=== PATIENT | female | born 1995 | race African-American/Black ===

== ENCOUNTER 2019-01-25 09:15 | Emergency (ER) | payer OTHER ==
[~2019-01-25] VITALS: Ht 175.3 cm; Wt 70.0 kg
[~2019-01-25 09:15] MED LIST: TYLENOL
[2019-01-25 09:18] VITALS: BP 110/68
[2019-01-25] MEDS ORDERED: PENICILLIN G BENZATHINE 1,200,000 UNITS/2ML SYR IM ONE (10:00)
[2019-01-25] MEDS ORDERED: DEXAMETHASONE 10 MG/ML VIAL IM ONE (10:00)
== END 2019-01-25 11:03 | disposition home or self-care (01) ==
LOC: ER 09:15
DX: J02.0 Streptococcal pharyngitis (principal); B95.0 Streptococcus, group A, as the cause of diseases classified elsewhere
CPT/HCPCS: 87430; 96372; 99283; J0561; J1100

== ENCOUNTER 2019-07-23 23:12 | Emergency (ER) | payer OTHER ==
[~2019-07-23] VITALS: Ht 172.7 cm; Wt 59.0 kg
[2019-07-24] MEDS ORDERED: KETOROLAC 30MG/ML VIAL IV STA (03:07)
[2019-07-24] MEDS ORDERED: SODIUM CHLORIDE 0.9% 1,000 ML IV ONE (03:07)
[2019-07-24 03:44] LABS: HEMATOCRIT. 38.8 % (36.0-48.0); HEMOGLOBIN. 13.1 g/dL (12.0-16.0); MEAN CORPUSCULAR HEMOGLOBIN 28.8 pg (28.0-32.0); MEAN CORPUSCULAR VOLUME 85.2 fL (81.0-99.0); MEAN PLATELET VOLUME 9.1 fl (7.4-10.4); PLATELET 193 x1000/uL (130-400); RED BLOOD CELL COUNT 4.56 mill/uL (4.2-5.4); RED CELL DISTRIBUTION WIDTH 12.8 % (11.6-14.6)
[2019-07-24 03:49] LABS: CHLORIDE 100 mEq/L (98-107)
[2019-07-24 05:10] VITALS: BP 114/81
[2019-07-24 05:15] LABS: ATYPICAL LYMPHOCYTES 1; PLATELET ESTIMATE NORMAL
== END 2019-07-24 05:11 | disposition home or self-care (01) ==
LOC: ER 23:12
DX: J04.0 Acute laryngitis (principal); R07.89 Other chest pain; F12.10 Cannabis abuse, uncomplicated
CPT/HCPCS: 36415; 71045; 80053; 81025; 85025; 93005; 96374; 99284; J1885; J7030

== ENCOUNTER 2020-12-20 19:17 | Emergency (ER) | payer MEDICAID, OTHER ==
[~2020-12-20] VITALS: Ht 172.7 cm; Wt 64.0 kg
[2020-12-20] MEDS ORDERED: SODIUM CHLORIDE 0.9% 1,000 ML IV ONE (20:45)
[2020-12-20] MEDS ORDERED: ONDANSETRON HCL 4MG/2ML INJ IV ONE (20:45)
[2020-12-20 20:56] LABS: BASOPHILS % 0.7 % (0.0-2.0); EOSINOPHILS % 0.6 % (0.0-5.0); HEMATOCRIT. 34.9 % (36.0-48.0); HEMOGLOBIN. 11.7 g/dL (12.0-16.0); LYMPHOCYTES % 18.2 % (20.0-50.0); MEAN CORPUSCULAR HEMOGLOBIN 28.7 pg (28.0-32.0); MEAN CORPUSCULAR VOLUME 85.5 fL (81.0-99.0); MEAN PLATELET VOLUME 8.5 fl (7.4-10.4); MONOCYTES % 9.9 % (2.0-8.0); NEUTROPHILS % 70.6 % (40.0-76.0); PLATELET 218 x1000/uL (130-400); RED BLOOD CELL COUNT 4.08 mill/uL (4.2-5.4); RED CELL DISTRIBUTION WIDTH 12.6 % (11.6-14.6)
[2020-12-20 21:04] LABS: CLARITY URINE CLEAR (CLEAR); COLOR URINE YELLOW (YELLOW); KETONES URINE 4+ (NEGATIVE); LEUKOCYTE ESTERASE URINE NEGATIVE (NEGATIVE); NITRITE URINE NEGATIVE (NEGATIVE); OCCULT BLOOD URINE TRACE (NEGATIVE); PH URINE 5.5 (4.5-8.0); PROTEIN URINE TRACE (NEGATIVE)
[2020-12-20 21:04] LABS: CHLORIDE 105 mEq/L (98-107)
[2020-12-20 21:35] LABS: B-HCG QUANTITATIVE 197635 mIU/mL (<3)
[2020-12-20] MEDS ORDERED: ONDA4TAB5 MT (23:14)
[2020-12-20] MEDS ORDERED: ONDANSETRON 4MG ODT PO ONE (23:15)
[2020-12-20 23:20] VITALS: BP 120/81
== END 2020-12-20 23:35 | disposition home or self-care (01) ==
LOC: ER 19:17
DX: O21.0 Mild hyperemesis gravidarum (principal); Z3A.01 Less than 8 weeks gestation of pregnancy
CPT/HCPCS: 36415; 76805; 76810; 76817; 80053; 81003; 81025; 84702; 85025; 96361; 96374; 99284; J2405; J7030; Q0162

== ENCOUNTER 2023-01-22 20:02 | Emergency (ER) | payer MEDICAID, OTHER ==
[~2023-01-22] VITALS: Ht 167.6 cm; Wt 63.0 kg
[~2023-01-22 20:02] MED LIST changes: +ONDA4TAB5 MT
[2023-01-22 20:20] VITALS: O2SAT 100
[2023-01-22 21:19] LABS: CLARITY URINE CLEAR (CLEAR); COLOR URINE YELLOW (YELLOW); GLUCOSE URINE NEGATIVE (NEGATIVE); KETONES URINE NEGATIVE (NEGATIVE); LEUKOCYTE ESTERASE URINE NEGATIVE (NEGATIVE); NITRITE URINE NEGATIVE (NEGATIVE); OCCULT BLOOD URINE NEGATIVE (NEGATIVE); PH URINE 6.5 (4.5-8.0); PROTEIN URINE NEGATIVE (NEGATIVE); SPECIFIC GRAVITY URINE 1.008 (1.005-1.030); UROBILINOGEN URINE 0.2 E.U./dL (0.2-1.0)
[2023-01-22 21:37] LABS: HEMATOCRIT 35.1 % (36.0-48.0); HEMOGLOBIN 11.7 g/dL (12.0-16.0); MEAN CORPUSCULAR HEMOGLOBIN 28.6 pg (28.0-32.0); MEAN CORPUSCULAR HGB CONC 33.2 g/dL (31.0-37.0); MEAN CORPUSCULAR VOLUME 86.3 fL (81.0-99.0); PLATELET 228 x1000/uL (130-400); RED BLOOD CELL COUNT 4.07 mill/uL (4.2-5.4); RED CELL DISTRIBUTION WIDTH 12.5 % (11.6-14.6); WHITE BLOOD COUNT 9.3 x1000/uL (4.5-11.0)
[2023-01-22 21:47] LABS: CHLORIDE 108 mEq/L (98-107); INDEX HEMOLYSI 1 (1-3); INDEX ICTERIC 1 (1-4); INDEX LIPEMIC 1 (1-3); POTASSIUM 4.1 mEq/L (3.5-5.1); SODIUM 138 mEq/L (136-145)
[2023-01-22 21:52] LABS: ALANINE AMINOTRANSFERASE 25 IU/L (13-61); ALBUMIN 4.2 g/dL (3.4-5.0); ASPARTATE AMINOTRANSFERASE 16 IU/L (15-37); CALCIUM 9.7 mg/dL (8.5-10.1); CARBON DIOXIDE 25 mEq/L (21-32); CREATININE 0.6 mg/dL (0.6-1.3); GLUCOSE 91 mg/dL (70-105); UREA NITROGEN BLOOD 5 mg/dL (7-21)
[2023-01-22 21:54] LABS: BILIRUBIN TOTAL 0.6 mg/dL (0.1-1.0); PROTEIN TOTAL 8.1 g/dL (6.0-8.3)
[2023-01-23 04:35] VITALS: BP 102/59; PULSE 71; RESP 18; TEMP 98.5
== END 2023-01-23 04:35 | disposition home or self-care (01) ==
LOC: ER 20:02
DX: O26.891 Other specified pregnancy related conditions, first trimester (principal); R10.2 Pelvic and perineal pain; F12.10 Cannabis abuse, uncomplicated; Z3A.09 9 weeks gestation of pregnancy
CPT/HCPCS: 36415; 76801; 80053; 81003; 81025; 84702; 85027; 99285

== ENCOUNTER 2023-06-03 03:54 | Emergency (ER) | payer MEDICAID ==
[~2023-06-03] VITALS: Ht 167.6 cm; Wt 77.0 kg
[2023-06-03 04:02] VITALS: BP 127/82; O2SAT 100
[2023-06-03] MEDS ORDERED: ACETAMINOPHEN 325MG TABLET PO ONE (04:15)
[2023-06-03] MEDS ORDERED: AMOXICILLIN 500 MG CAPSULE PO ONE (04:15)
[2023-06-03 04:53] LABS: BASOPHILS % 0.3 % (0.0-2.0); EOSINOPHILS % 1.7 % (0.0-5.0); HEMOGLOBIN. 11.1 g/dL (12.0-16.0); LYMPHOCYTES % 10.1 % (20.0-50.0); MEAN CORPUSCULAR HEMOGLOBIN 28.5 pg (28.0-32.0); MEAN CORPUSCULAR HGB CONC 32.8 g/dL (31.0-37.0); MEAN CORPUSCULAR VOLUME 86.8 fL (81.0-99.0); MONOCYTES % 10.7 % (2.0-8.0); NEUTROPHILS % 77.2 % (40.0-76.0); PLATELET 218 x1000/uL (130-400); RED BLOOD CELL COUNT 3.92 mill/uL (4.2-5.4); RED CELL DISTRIBUTION WIDTH 12.9 % (11.6-14.6); WHITE BLOOD COUNT 12.3 x1000/uL (4.5-11.0)
[2023-06-03 05:12] LABS: ALANINE AMINOTRANSFERASE 25 IU/L (10-49); ALBUMIN 3.5 g/dL (3.2-4.8); ASPARTATE AMINOTRANSFERASE 21 IU/L (<34); BILIRUBIN TOTAL 0.4 mg/dL (0.1-1.0); CARBON DIOXIDE 25 mEq/L (21-32); CHLORIDE 108 mEq/L (98-107); CREATININE 0.5 mg/dL (0.6-1.0); GLUCOSE 96 mg/dL (70-105); POTASSIUM 4.1 mEq/L (3.5-5.1); PROTEIN TOTAL 6.1 g/dL (6.0-8.3); SODIUM 139 mEq/L (136-145)
[2023-06-03 05:30] LABS: UREA NITROGEN BLOOD < 5 mg/dL (9-23)
[2023-06-03] MEDS ORDERED: NEOMYCIN-POLYMYXIN-HYDROCORTISONE 1% OTIC SUSP 10ML RIGHT EAR ONE (07:00)
[2023-06-03] MEDS ORDERED: OFLO5DRO4 RIGHT EAR (07:04)
[2023-06-03 07:46] VITALS: PULSE 75; RESP 20; TEMP 97.9
== END 2023-06-03 07:47 | disposition home or self-care (01) ==
LOC: ER 03:54
DX: H60.311 Diffuse otitis externa, right ear (principal); F12.10 Cannabis abuse, uncomplicated; Z20.822 Contact with and (suspected) exposure to COVID-19
CPT/HCPCS: 99285; 71045; 87426; 80053; 85025; 85379; 36415; 93005; C9803